=== PATIENT | male | born 1980 | race African-American/Black ===

== ENCOUNTER 2018-02-09 18:40 | Emergency (ER) | payer MEDICAID ==
[~2018-02-09] VITALS: Ht 175.3 cm; Wt 69.0 kg
[2018-02-10] MEDS ORDERED: MORPHINE SULFATE 4 MG/ML CPJ (NOT FOR IM USE) IV STA (02:10)
[2018-02-10] MEDS ORDERED: FAMOTIDINE 20MG/2ML VIAL IV STA (02:10)
[2018-02-10 02:31] LABS: BASOPHILS % 0.7 % (0.0-2.0); HEMATOCRIT. 46.3 % (42.0-52.0); HEMOGLOBIN. 15.5 g/dL (14.0-18.0); MEAN CORPUSCULAR HEMOGLOBIN 31.5 pg (28.0-32.0); MEAN CORPUSCULAR VOLUME 93.9 fL (80.0-94.0); MEAN PLATELET VOLUME 7.9 fl (7.4-10.4); NEUTROPHILS % 67.3 % (40.0-76.0); PLATELET 202 x1000/uL (130-400); RED BLOOD CELL COUNT 4.93 mill/uL (4.7-6.1); RED CELL DISTRIBUTION WIDTH 14.4 % (11.6-14.6)
[2018-02-10 02:34] LABS: CHLORIDE 105 mEq/L (98-107)
[2018-02-10 02:36] LABS: PROTHROMBIN TIME 10.7 sec (9.4-11.6)
[2018-02-10 02:47] LABS: CLARITY URINE CLEAR (CLEAR); COLOR URINE YELLOW (YELLOW); KETONES URINE NEGATIVE (NEGATIVE); LEUKOCYTE ESTERASE URINE NEGATIVE (NEGATIVE); NITRITE URINE NEGATIVE (NEGATIVE); OCCULT BLOOD URINE NEGATIVE (NEGATIVE); PH URINE 5.5 (4.5-8.0); PROTEIN URINE NEGATIVE (NEGATIVE); SPECIFIC GRAVITY URINE 1.019 (1.005-1.030); UROBILINOGEN URINE 0.2 E.U./dL (0.2-1.0)
[2018-02-10 05:40] VITALS: BP 124/60
== END 2018-02-10 06:15 | disposition home or self-care (01) ==
LOC: ER 19:37 → CANBEDREQ 02-10 06:28
DX: K59.00 Constipation, unspecified (principal); F12.10 Cannabis abuse, uncomplicated; Z85.048 Personal history of other malignant neoplasm of rectum, rectosigmoid junction, and anus; Z20.6 Contact with and (suspected) exposure to human immunodeficiency virus [HIV]; Z98.890 Other specified postprocedural states
CPT/HCPCS: 36415; 71045; 74176; 80053; 81003; 83690; 85025; 85610; 96374; 96375; 99285; J2270; J3490; Z7610

== ENCOUNTER 2018-02-12 01:24 | Emergency (ER) | payer MEDICAID ==
[~2018-02-12] VITALS: Ht 175.3 cm; Wt 69.0 kg
[2018-02-12] MEDS ORDERED: KETOROLAC 30MG/ML VIAL IV STA (01:53)
[2018-02-12] MEDS ORDERED: SODIUM CHLORIDE 0.9% 1,000 ML IV ONE (01:53)
[2018-02-12 02:32] LABS: CLARITY URINE CLEAR (CLEAR); COLOR URINE YELLOW (YELLOW); KETONES URINE NEGATIVE (NEGATIVE); LEUKOCYTE ESTERASE URINE NEGATIVE (NEGATIVE); NITRITE URINE NEGATIVE (NEGATIVE); OCCULT BLOOD URINE NEGATIVE (NEGATIVE); PH URINE 6.5 (4.5-8.0); PROTEIN URINE NEGATIVE (NEGATIVE); SPECIFIC GRAVITY URINE 1.012 (1.005-1.030)
[2018-02-12 02:35] LABS: BASOPHILS % 0.4 % (0.0-2.0); EOSINOPHILS % 0.9 % (0.0-5.0); HEMOGLOBIN. 14.1 g/dL (14.0-18.0); LYMPHOCYTES % 15.1 % (20.0-50.0); MEAN CORPUSCULAR HEMOGLOBIN 31.9 pg (28.0-32.0); MEAN PLATELET VOLUME 8.6 fl (7.4-10.4); MONOCYTES % 11.3 % (2.0-8.0); NEUTROPHILS % 72.3 % (40.0-76.0); PLATELET 185 x1000/uL (130-400); RED BLOOD CELL COUNT 4.41 mill/uL (4.7-6.1); RED CELL DISTRIBUTION WIDTH 13.7 % (11.6-14.6)
[2018-02-12 02:42] LABS: CHLORIDE 108 mEq/L (98-107); PROTHROMBIN TIME 10.6 sec (9.4-11.6)
[2018-02-12 04:10] VITALS: BP 125/73
== END 2018-02-12 04:11 | disposition home or self-care (01) ==
LOC: ER 01:24
DX: K85.90 Acute pancreatitis without necrosis or infection, unspecified (principal); F12.10 Cannabis abuse, uncomplicated; Z98.890 Other specified postprocedural states
CPT/HCPCS: 36415; 71045; 74018; 80053; 81003; 83690; 85025; 85610; 96361; 96374; 99285; J1885; J7030; Z7610

== ENCOUNTER 2018-11-28 14:01 | Emergency (ER) | payer MEDICAID ==
[~2018-11-28] VITALS: Ht 175.3 cm; Wt 69.0 kg
[2018-11-28] MEDS ORDERED: KETOROLAC 30MG/ML VIAL IM ONE (17:15)
[2018-11-28] MEDS ORDERED: DIPHENHYDRAMINE 25MG CAPSULE PO ONE (17:45)
[2018-11-28 17:53] VITALS: BP 158/86
== END 2018-11-28 18:28 | disposition home or self-care (01) ==
LOC: ER 14:01
DX: L85.3 Xerosis cutis (principal); F12.10 Cannabis abuse, uncomplicated; Z98.890 Other specified postprocedural states
CPT/HCPCS: 99282

== ENCOUNTER 2019-09-19 07:26 | Emergency (ER) | payer MEDICAID ==
[~2019-09-19] VITALS: Ht 175.3 cm; Wt 65.0 kg
[2019-09-19] MEDS ORDERED: KETOROLAC 60MG/2ML VIAL IM ONE (08:15)
[2019-09-19 10:35] VITALS: BP 134/83
== END 2019-09-19 10:36 | disposition home or self-care (01) ==
LOC: ER 07:40
DX: J02.9 Acute pharyngitis, unspecified (principal); J06.9 Acute upper respiratory infection, unspecified; F12.10 Cannabis abuse, uncomplicated; F17.210 Nicotine dependence, cigarettes, uncomplicated; Z85.038 Personal history of other malignant neoplasm of large intestine; Z90.49 Acquired absence of other specified parts of digestive tract
CPT/HCPCS: 87070; 87430; 96372; 99283; J1885

== ENCOUNTER 2019-11-29 10:00 | Emergency (ER) | payer MEDICAID ==
[~2019-11-29] VITALS: Ht 167.6 cm; Wt 64.0 kg
[2019-11-29] MEDS ORDERED: SODIUM CHLORIDE 0.9% 1,000 ML IV ONE (18:39)
[2019-11-29 20:54] LABS: HEMATOCRIT. 40.9 % (42.0-52.0); MEAN CORPUSCULAR HEMOGLOBIN 31.6 pg (28.0-32.0); MEAN CORPUSCULAR VOLUME 92.5 fL (80.0-94.0); MEAN PLATELET VOLUME 8.5 fl (7.4-10.4); PLATELET 168 x1000/uL (130-400); RED BLOOD CELL COUNT 4.42 mill/uL (4.7-6.1); RED CELL DISTRIBUTION WIDTH 14.6 % (11.6-14.6)
[2019-11-29 20:58] LABS: INR 1.1
[2019-11-29 21:01] LABS: CHLORIDE 109 mEq/L (98-107)
[2019-11-29 22:30] VITALS: BP 118/69
[2019-11-29 23:05] LABS: NUCLEATED RED BLOOD CELLS 1 /100 WBC; PLATELET ESTIMATE NORMAL
[2019-11-29 23:25] LABS: CLARITY URINE CLEAR (CLEAR); COLOR URINE YELLOW (YELLOW); KETONES URINE 3+ (NEGATIVE); LEUKOCYTE ESTERASE URINE NEGATIVE (NEGATIVE); NITRITE URINE NEGATIVE (NEGATIVE); OCCULT BLOOD URINE NEGATIVE (NEGATIVE); PROTEIN URINE NEGATIVE (NEGATIVE); SPECIFIC GRAVITY URINE 1.025 (1.005-1.030)
== END 2019-11-30 00:16 | disposition home or self-care (01) ==
LOC: ER 10:03
DX: R42 Dizziness and giddiness (principal); R51 Headache; G89.29 Other chronic pain; R10.84 Generalized abdominal pain; Z85.038 Personal history of other malignant neoplasm of large intestine; Z90.49 Acquired absence of other specified parts of digestive tract
CPT/HCPCS: 36415; 70450; 76705; 80053; 81003; 83605; 83690; 84484; 85025; 85610; 93005; 96360; 96361; 99284; J7030; Z7610; 71045

== ENCOUNTER 2021-03-14 19:54 | Emergency (ER) | payer MEDICAID ==
[~2021-03-14] VITALS: Ht 175.3 cm; Wt 65.0 kg
[2021-03-14] MEDS ORDERED: MORPHINE SULFATE 4 MG/ML CPJ (NOT FOR IM USE) IV ONE (22:15)
[2021-03-14] MEDS ORDERED: SODIUM CHLORIDE 0.9% 1,000 ML IV ONE (22:15)
[2021-03-14] MEDS ORDERED: ONDANSETRON HCL 4MG/2ML INJ IV ONE (22:15)
[2021-03-14 22:39] LABS: BASOPHILS % 0.8 % (0.0-2.0); EOSINOPHILS % 0.6 % (0.0-5.0); HEMATOCRIT. 43.3 % (42.0-52.0); HEMOGLOBIN. 14.7 g/dL (14.0-18.0); LYMPHOCYTES % 23.5 % (20.0-50.0); MEAN CORPUSCULAR HEMOGLOBIN 31.9 pg (28.0-32.0); MEAN PLATELET VOLUME 8.5 fl (7.4-10.4); MONOCYTES % 9.6 % (2.0-8.0); NEUTROPHILS % 65.5 % (40.0-76.0); PLATELET 223 x1000/uL (130-400); RED BLOOD CELL COUNT 4.61 mill/uL (4.7-6.1); RED CELL DISTRIBUTION WIDTH 14.4 % (11.6-14.6)
[2021-03-14 22:46] LABS: CHLORIDE 108 mEq/L (98-107)
[2021-03-14 23:26] LABS: CLARITY URINE CLEAR (CLEAR); COLOR URINE YELLOW (YELLOW); KETONES URINE NEGATIVE (NEGATIVE); LEUKOCYTE ESTERASE URINE NEGATIVE (NEGATIVE); NITRITE URINE NEGATIVE (NEGATIVE); OCCULT BLOOD URINE NEGATIVE (NEGATIVE); PH URINE 6.5 (4.5-8.0); PROTEIN URINE NEGATIVE (NEGATIVE); SPECIFIC GRAVITY URINE 1.009 (1.005-1.030); UROBILINOGEN URINE 0.2 E.U./dL (0.2-1.0)
[2021-03-15] MEDS ORDERED: PANT40SU PO (00:39)
[2021-03-15 01:12] VITALS: BP 119/72
== END 2021-03-15 01:16 | disposition left against medical advice (07) ==
LOC: ER 19:54
DX: R10.13 Epigastric pain (principal); M54.5 Low back pain; F12.90 Cannabis use, unspecified, uncomplicated; Z85.038 Personal history of other malignant neoplasm of large intestine; Z90.49 Acquired absence of other specified parts of digestive tract
CPT/HCPCS: 36415; 80048; 80076; 81003; 83690; 85025; 96374; 96375; 99284; J2270; J2405; J7030